=== PATIENT | female | born 1965 | race Caucasian/White ===

== ENCOUNTER 2017-03-07 16:34 | Emergency (ER) | payer BC ==
[~2017-03-07] VITALS: Ht 167.6 cm; Wt 77.1 kg
[2017-03-07] MEDS ORDERED: [UNRECOGNIZED DRUG - REMARK] (16:48)
--- NOTE | 2017-03-07 16:53 | NUR ---
PT IS IN ROOM #1B. DR ORTEGA EVALUATED THE PT.
--- NOTE | 2017-03-07 17:37 | NUR ---
PT WAS D/C TO HOME. D/C INSTRUCTIONS GIVEN TO THE PT.
[2017-03-07 17:39] VITALS: BP 135/76
== END 2017-03-07 17:42 | disposition home or self-care (01) ==
LOC: ER 16:34
DX: S05.41XA Penetrating wound of orbit with or without foreign body, right eye, initial encounter (principal); W54.8XXA Other contact with dog, initial encounter; Y93.89 Activity, other specified; Y92.9 Unspecified place or not applicable; Y99.9 Unspecified external cause status
CPT/HCPCS: 90715; A4663